=== PATIENT | female | born 1960 | race African-American/Black ===

== ENCOUNTER 2023-09-08 20:06 | Emergency (ER) | payer MEDICAID ==
[~2023-09-08] VITALS: Ht 160 cm; Wt 74.0 kg
[2023-09-08 20:57] VITALS: O2SAT 98
[2023-09-08] MEDS ORDERED: DICL75TA5 MT (23:27)
[2023-09-08] MEDS ORDERED: CAPS60CR3 TP (23:27)
[2023-09-08] MEDS ORDERED: IBUPROFEN 800MG TABLET PO NR (23:30)
[2023-09-08] MEDS: IBUPROFEN 800MG TABLET PO ONE (23:40)
[2023-09-08] MEDS: HYDROCODONE/ACETAMINOPHEN 5/325MG TABLET PO NR (23:41)
[2023-09-08] MEDS: HYDROCODONE/ACETAMINOPHEN 5/325MG TABLET PO ONE (23:41)
[2023-09-08] MEDS: IBUPROFEN 400MG TABLET PO NR (23:41)
[2023-09-08 23:51] VITALS: BP 134/66; PULSE 77; RESP 16; TEMP 98.2
== END 2023-09-08 23:50 | disposition home or self-care (01) ==
LOC: ER 20:17
DX: S83.8X2A Sprain of other specified parts of left knee, initial encounter (principal); M25.462 Effusion, left knee; W18.30XA Fall on same level, unspecified, initial encounter; Y93.89 Activity, other specified; Y92.89 Other specified places as the place of occurrence of the external cause; Y99.8 Other external cause status
CPT/HCPCS: 73562; 99283